=== PATIENT | female | born 1945 | race Caucasian/White ===

== ENCOUNTER 2016-08-02 15:10 | Emergency (ER) | payer MEDICARE ==
[2016-08-02] MEDS ORDERED: PANTOPRAZOLE SODIUM 40 MG VIAL IV ONE (15:31)
[2016-08-02] MEDS ORDERED: NORMAL SALINE 1000 ML 1,000 ML IV ONE (15:31)
--- NOTE | 2016-08-02 15:31 | ER Document Report ---
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 Patient notes she's gone through 4 pads since yesterday has vomited multiple times. Admits to weakness. Patient has a history of anemia with history of nephrectomy and iron deficiency TRAVEL OUTSIDE OF THE [place] IN LAST 30 DAYS: No - HPI Onset: Yesterday Onset/Duration: Sudden Quality of pain: Sharp Severity: Mild Pain Level: 2 Associated symptoms: Other Exacerbated by: Denies Relieved by: Denies Similar symptoms previously: Yes Recently seen / treated by doctor: Yes - Related Data Allergies/Adverse Reactions: nitroglycerin [From Transderm-Nitro] Allergy (Unknown, Verified 10/13/15 05:48) rash STIVEN Inhibitors [Stiven Inhibitors] Allergy (Verified 10/12/15 11:58) atenolol [Atenolol] Allergy (Verified 10/12/15 11:58) cephalexin monohydrate [From Keflex] Allergy (Verified 10/12/15 11:58) ciprofloxacin [Ciprofloxacin] Allergy (Verified 10/12/15 11:58) ciprofloxacin HCl [From Cipro] Allergy (Verified 10/12/15 11:58) eplerenone [Eplerenone] Allergy (Verified 10/12/15 11:58) oxycodone [Oxycodone] Allergy (Verified 10/12/15 22:03) pravastatin sodium [From Pravachol] Allergy (Verified 10/12/15 11:58) Sulfa (Sulfonamide Antibiotics) Allergy (Verified 10/12/15 11:58) Past Medical History - Social History Smoking Status: Never Smoker Cigarette use (# per day): No Chew tobacco use (# tins/day): No Smoking Education Provided: No Family History: Reviewed & Not Pertinent - Past Medical History Cardiac Medical History: Reports: Hx Atrial Fibrillation, Hx Hypertension Endocrine Medical History: Reports: Hx Diabetes Mellitus Type 2 Psychiatric Medical History: Reports: Hx Depression - Immunizations Hx Diphtheria, Pertussis, Tetanus Vaccination: Yes Hx Pneumococcal Vaccination: 05/05/15 Review of Systems - Review of Systems Notes: REVIEW OF SYSTEMS: CONSTITUTIONAL : Denies fever, chills, or sweats. Denies recent illness. EENT: Denies eye, ear, throat, or mouth pain or symptoms. Denies nasal or sinus congestion or discharge. Denies throat, tongue, or mouth swelling or difficulty swallowing. CARDIOVASCULAR: Denies chest pain. Denies palpitations or racing or irregular heart beat. Denies ankle edema. RESPIRATORY: Denies cough, cold, or chest congestion. Denies shortness of breath, difficulty breathing, or wheezing. GASTROINTESTINAL: Admits to abdominal pain or vomiting blood rectal bleeding GENITOURINARY: Denies difficulty urinating, painful urination, burning, frequency, blood in urine, or discharge. FEMALE GENITOURINARY: Denies vaginal bleeding, heavy or abnormal periods, irregular periods. Denies vaginal discharge or odor. MUSCULOSKELETAL: Denies back or neck pain or stiffness. Denies joint pain or swelling. SKIN: Denies rash, lesions or sores. HEMATOLOGIC : Denies easy bruising or bleeding. LYMPHATIC: Denies swollen, enlarged glands. NEUROLOGICAL: Denies confusion or altered mental status. Denies passing out or loss of consciousness. Denies dizziness or lightheadedness. Denies headache. Denies weakness or paralysis or loss of use of either side. Denies problems with gait or speech. Denies sensory loss, numbness, or tingling. Denies seizures. PSYCHIATRIC: Denies anxiety or stress. Denies depression, suicidal ideation, or homicidal ideation. ALL OTHER SYSTEMS REVIEWED AND NEGATIVE. Dictation was performed using e[employer] voice recognition software PHYSICAL EXAMINATION: GENERAL: Well-appearing, well-nourished and in no acute distress. HEAD: Atraumatic, normocephalic. EYES: Pupils equal round and reactive to light, extraocular movements intact, conjunctiva are normal. ENT: Nares patent, oropharynx clear without exudates. Moist mucous membranes. NECK: Normal range of motion, supple without lymphadenopathy LUNGS: Breath sounds clear to auscultation bilaterally and equal. No wheezes rales or rhonchi. HEART: Regular rate and rhythm without murmurs ABDOMEN: Soft, nontender, nondistended abdomen. No guarding, no rebound. No masses appreciated. Bright red blood in vomit and rectum Female : deferred Musculoskeletal: Normal range of motion, no pitting or edema. No cyanosis. NEUROLOGICAL: Cranial nerves grossly intact. Normal speech, normal gait. Normal sensory, motor exams PSYCH: Normal mood, normal affect. SKIN: Warm, Dry, normal turgor, no rashes or lesions noted. Physical Exam - Vital signs Vitals: Resp 15 08/02/16 15:44 Course - Re-evaluation Re-evalutation: 08/02/16 15:33 Patient having obvious GI bleed, probably secondary to endoscopy that was performed at [facility] on the . Vitals aren't improved her EMS after fluid bolus , she'll be started on Protonix 08/02/16 16:46 pt noted ot be anemic at 5.9 , beatriz ltransfuse and bernal paged for transfer 08/02/16 16:58 Alexi fellow MICU , MICU attending is Dr Tubbs 08/02/16 17:02 - Vital Signs Vital signs: Temp Pulse Resp BP Pulse Ox 29 H 107/73 100 08/02/16 16:01 08/02/16 16:01 08/02/16 16:01 - Laboratory Result Diagrams: 08/02/16 15:55 08/02/16 15:55 Laboratory results interpreted by me: 08/02/16 08/02/16 08/02/16 15:55 15:55 15:55 WBC 14.9 H RBC 2.72 L Hgb 5.9 L Hct 20.0 L MCV 74 L MCH 21.7 L MCHC 29.5 L RDW 19.8 H Seg Neuts % (Manual) 91 H Band Neutrophils % 1 L Lymphocytes % (Manual) 3 L Metamyelocytes % 1 H Abs Neuts (Manual) 13.9 H Abs Lymphs (Manual) 0.4 L BUN 85 H Creatinine 2.53 H Est GFR ( Amer) 23 L Est GFR (Non-Af Amer) 19 L Glucose 221 H Calcium 8.3 L Total Protein 5.4 L Albumin 3.2 L Crossmatch See Detail Critical Care Note - Critical Care Note Total time excluding time spent on procedures (mins): 35 Comments: 35 minutes of critical care time spent in direct contact evaluating and reevaluating the patient, treating symptoms, reviewing labs and studies and speaking with family and consultants excluding any procedures Discharge - Discharge Clinical Impression: Acute gastrointestinal hemorrhage, Severe anemia CKD (chronic kidney disease) Qualifiers: Chronic kidney disease stage: unspecified stage Qualified Code(s): N18.9 - Chronic kidney disease, unspecified Condition: Poor Disposition: BERNAL
[2016-08-02] MEDS ORDERED: PANTOPRAZOLE SODIUM 40 MG VIAL IV PRN (15:36)
[2016-08-02 16:21] LABS: HGB HCT DIFFERENCE -2.3; MEAN CORPUSCULAR HEMOGLOBIN 21.7 pg (27.0-33.4); MEAN CORPUSCULAR HGB CONC 29.5 g/dL (32.0-36.0); MEAN CORPUSCULAR VOLUME 74 fl (80-97); RED BLOOD COUNT 2.72 10^6/uL (3.72-5.28); RED CELL DISTRIBUTION WIDTH 19.8 % (11.5-14.0); WHITE BLOOD COUNT 14.9 10^3/uL (4.0-10.5)
[2016-08-02 16:33] LABS: ALANINE AMINOTRANSFERASE 23 U/L (9-52); ALBUMIN 3.2 g/dL (3.5-5.0); ALKALINE PHOSPHATASE 65 U/L (38-126); ANION GAP 12 (5-19); ASPARTATE AMINO TRANSFERASE 21 U/L (14-36); BILIRUBIN,TOTAL 0.7 mg/dL (0.2-1.3); BLOOD UREA NITROGEN 85 mg/dL (7-20); CALCIUM 8.3 mg/dL (8.4-10.2); CARBON DIOXIDE 26 mmol/L (22-30); CHLORIDE 102 mmol/L (98-107); CREATININE RESULT 2.53 mg/dL (0.52-1.25); GLUCOSE 221 mg/dL (75-110); POTASSIUM 4.7 mmol/L (3.6-5.0); SODIUM 139.6 mmol/L (137-145); TOTAL PROTEIN 5.4 g/dL (6.3-8.2)
[2016-08-02 16:34] LABS: BAND NEUTROPHILS % (MANUAL) 1 % (3-5); BASOPHILS % (MANUAL) 1 % (0-2); EOSINOPHILS % (MANUAL) 0 % (0-6); LYMPHOCYTES % (MANUAL) 3 % (13-45); TOTAL CELLS COUNTED 100
[2016-08-02 16:36] LABS: ANISOCYTOSIS 2+; HYPOCHROMASIA 2+; MICROCYTOSIS 2+; OVALOCYTES SLIGHT; POIKILOCYTOSIS SLIGHT; POLYCHROMASIA SLIGHT; TEAR DROP CELLS SLIGHT
[2016-08-02 16:39] LABS: HEMOGLOBIN 5.9 g/dL (12.0-15.5)
[2016-08-02] MEDS ORDERED: NORMAL SALINE 250 ML IV PRN ×2 (16:44→16:45)
[2016-08-02] MEDS ORDERED: ONDANSETRON HCL INJ/PF 4 MG/2 ML SDV IV ONE (16:48)
[2016-08-02] MEDS ORDERED: LORAZEPAM INJ 2 MG/1 ML VIAL IV ONE (16:51)
[2016-08-02] MEDS ORDERED: LIDOCAINE 4%/TETRACAINE 0.5%/EPI 0.18% 5 ML TOPICAL SOLN TOP ONE (17:22)
[2016-08-02 17:29] LABS: PROTHROMBIN TIME 15.1 SEC (11.4-15.4)
[2016-08-02 18:57] VITALS: BP 113/88
== END 2016-08-02 18:50 | disposition short-term general hospital (02) ==
LOC: ER 15:10
DX: K92.2 Gastrointestinal hemorrhage, unspecified (principal); D64.9 Anemia, unspecified; I12.9 Hypertensive chronic kidney disease with stage 1 through stage 4 chronic kidney disease, or unspecified chronic kidney disease; E11.22 Type 2 diabetes mellitus with diabetic chronic kidney disease; N18.9 Chronic kidney disease, unspecified; Z90.5 Acquired absence of kidney; Z98.890 Other specified postprocedural states; Z88.8 Allergy status to other drugs, medicaments and biological substances; Z88.1 Allergy status to other antibiotic agents; Z88.5 Allergy status to narcotic agent; Z88.2 Allergy status to sulfonamides
CPT/HCPCS: 99291; 96375; 96365; 96366; 86900; 86901; 36415; 36430; 86850; 85025; 85610; 80053; 86920; P9016; J2060; C9113; J2405; J7030; S0164